=== PATIENT | male | born 1965 | race Caucasian/White ===

== ENCOUNTER 2020-05-11 14:26 | Emergency (ER) | payer MEDICARE ==
[~2020-05-11] VITALS: Ht 165.1 cm; Wt 81.8 kg
[2020-05-11 14:52] LABS: BASO % 1 % (0-3); EOS # 0.1 x10^3/uL (0.0-0.7); EOS % 2 % (0-3); HEMATOCRIT 45.7 % (39.0-53.0); HEMOGLOBIN 15.9 g/dL (13.0-17.5); LYMPH # 1.9 x10^3/uL (1.0-4.8); LYMPH % 27 % (24-48); MEAN CORPUSCULAR HEMOGLOBIN 32 pg (25-35); MEAN CORPUSCULAR HGB CONC 35 g/dL (31-37); MEAN CORPUSCULAR VOLUME 92 fL (79-100); MONO # 0.5 x10^3/uL (0.0-1.1); MONO % 7 % (0-9); NEUT # 4.4 x10^3/uL (1.8-7.7); NEUT % 64 % (31-73); PLATELET COUNT 185 x10^3/uL (140-400); RED BLOOD COUNT 4.97 x10^6/uL (4.30-5.70); WHITE BLOOD COUNT 6.9 x10^3/uL (4.0-11.0)
[2020-05-11 15:00] LABS: CALCIUM 9.3 mg/dL (8.5-10.1); GFR 78.2; POTASSIUM 4.4 mmol/L (3.5-5.1)
--- NOTE | 2020-05-11 15:00 | RAD ---
XR CHEST 2V History: Reason: chest pain since last night. / Spl. Instructions: / History: Comparison: None. Findings: No consolidation or pleural effusion. Normal heart size. No pneumothorax. Impression: 1. No acute cardiopulmonary process. Electronically signed by: Hiro Cosby DO (05/11/2020 2:58 PM) [id number]
[2020-05-11] MEDS ORDERED: KETOROLAC 30 MG/ML VIAL. IVP ONE (15:45)
[2020-05-11] MEDS ORDERED: ASPIRIN CHEWABLE 81 MG TABLET. PO ONE (15:45)
--- NOTE | 2020-05-11 17:55 | ED.ADGEN ---
Past Medical History Past Medical History: Anxiety, Depression, Seizure Past Surgical History: Appendectomy Smoking Status: Never Smoker Alcohol Use: None General Adult EDM: Chief Complaint: CHEST PAIN HPI: HPI: Patient is a 55-year-old male who presents to the emergency room complaining of left-sided chest pain that has been constant for 3 days. He states yesterday he had some radiation into his arm which is now resolved. He states that the pain feels like an aching feeling. He is never had anything like this before. He has some mild shortness of breath with it. He denies any cough, URI symptoms, fever, chills, sweats, abdominal pain, nausea, vomiting. Review of Systems: Review of Systems: Complete ROS is negative unless otherwise documented in HPI Current Medications: Current Medications Medications (Trade) Dose Ordered Sig/Aubree Start Time Stop Time Status Last Admin Dose Admin Aspirin (Aspirin Chewable) 324 mg 1X ONCE 05/11/20 15:45 05/11/20 16:16 DC 05/11/20 16:32 324 MG Ketorolac Tromethamine (Toradol 30mg Vial) 30 mg 1X ONCE 05/11/20 15:45 05/11/20 16:16 DC 05/11/20 16:32 30 MG Allergies: Allergies: Allergies Coded Allergies Type Severity Reaction Last Updated Verified No Known Drug Allergies 05/11/20 No Physical Exam: PE: General: Awake, alert, NAD. Well Nourished, well hydrated. Cooperative HEENT: Atraumatic, EOMI, PERRL, airway patent, moist oral mucosa Neck: Supple, trachea midline Respiratory: CTA bilaterally, normal effort, no wheezing/crackles CV: RRR, no murmur, cap refill <2 GI: Soft, nondistended, nontender, no masses MSK: No obvious deformities Skin: Warm, dry, intact Neuro: A&O x3, speech NL, sensory and motor grossly intact, no focal deficits Psych: Normal affect, normal mood, not suicidal or homicidal Current Patient Data: Labs: Laboratory Tests Test 05/11/20 14:40 White Blood Count 6.9 x10^3/uL (4.0-11.0) Red Blood Count 4.97 x10^6/uL (4.30-5.70) Hemoglobin 15.9 g/dL (13.0-17.5) Hematocrit 45.7 % (39.0-53.0) Mean Corpuscular Volume 92 fL (79-100) Mean Corpuscular Hemoglobin 32 pg (25-35) Mean Corpuscular Hemoglobin Concent 35 g/dL (31-37) Red Cell Distribution Width 13.0 % (11.5-14.5) Platelet Count 185 x10^3/uL (140-400) Neutrophils (%) (Auto) 64 % (31-73) Lymphocytes (%) (Auto) 27 % (24-48) Monocytes (%) (Auto) 7 % (0-9) Eosinophils (%) (Auto) 2 % (0-3) Basophils (%) (Auto) 1 % (0-3) Neutrophils # (Auto) 4.4 x10^3/uL (1.8-7.7) Lymphocytes # (Auto) 1.9 x10^3/uL (1.0-4.8) Monocytes # (Auto) 0.5 x10^3/uL (0.0-1.1) Eosinophils # (Auto) 0.1 x10^3/uL (0.0-0.7) Basophils # (Auto) 0.0 x10^3/uL (0.0-0.2) Sodium Level 139 mmol/L (136-145) Potassium Level 4.4 mmol/L (3.5-5.1) Chloride Level 101 mmol/L (98-107) Carbon Dioxide Level 32 mmol/L (21-32) Anion Gap 6 (6-14) Blood Urea Nitrogen 13 mg/dL (8-26) Creatinine 1.0 mg/dL (0.7-1.3) Estimated GFR (Cockcroft-Gault) 78.2 Glucose Level 82 mg/dL (70-99) Calcium Level 9.3 mg/dL (8.5-10.1) Troponin I Quantitative < 0.017 ng/mL (0.000-0.055) Laboratory Tests 05/11/20 14:40 Laboratory Tests 05/11/20 14:40 Vital Signs: Vital Signs Date Time Temp Pulse Resp B/P (MAP) Pulse Ox O2 Delivery O2 Flow Rate FiO2 05/11/20 18:10 79 18 127/83 (98) 97 05/11/20 17:40 Room Air 05/11/20 14:49 98.0 98.0 EKG: EKG: [] Heart Score: Risk Factors: Risk Factors: DM, Current or recent (<one month) smoker, HTN, HLP, family history of CAD, obesity. Risk Scores: Score 0 - 3: 2.5% MACE over next 6 weeks - Discharge Home Score 4 - 6: 20.3% MACE over next 6 weeks - Admit for Clinical Observation Score 7 - 10: 72.7% MACE over next 6 weeks - Early Invasive Strategies Radiology/Procedures: Radiology/Procedures: [] Course & Med Decision Making: Course & Med Decision Making Pertinent Labs and Imaging studies reviewed. (See chart for details) Patient is a 55 year-old male who presents to the Emergency Room complaining of chest pain. At this time, given patient's risk factors and story there is concern for possible cardiac pathology. EKG was ordered and shows normal sinus rhythm. At this time there is no signs of STEMI, pericarditis, or unstable arrthymia on EKG. Patient has received aspirin today. CBC, BMP, troponin, CXR were ordered to evaluate for causes of chest pain including ACS, anemia, electrolyte abnormalities that can lead to arrhythmias, PTX, pneumonia, pneumomediastinum. Patient does not have any abdominal tenderness that would suggest pancreaititis or cholecystitis and does not need an abdominal work up at this time. Patient's HEART score is 3 placing the patient at low risk. Work-up was unremarkable. Patient is feeling better after aspirin and Toradol. I did offer him admission for cardiac evaluation and patient declines. He will follow up with his primary care doctor tomorrow to have a stress test arranged outpatient. He will return to the emergency room if his chest pain comes back. Patient's test results and vitals while in the ED were fully reviewed and discussed with the patient. Patient is stable and at this time does not need admission to the hospital. We have discussed strict return precautions and the importance of following up with their Primary Care Physician. Patient stated understanding and was given an opportunity to ask any questions. Patient is in agreement with plan. Arielon Disclaimer: Arielon Disclaimer: This electronic medical record was generated, in whole or in part, using a voice recognition dictation system. Departure Departure Impression: Primary Impression: Chest pain Disposition: 01 DC HOME SELF CARE/HOMELESS Condition: STABLE Referrals: HECTOR CHOU PA-C (PCP) Patient Instructions: Chest Pain (Nonspecific) Additional Instructions: Please call your Primary Care Physician tomorrow for follow up and to set up an outpatient stress test. If your chest pain returns please come back to the Emergency Room. KAREN NEWMAN MD May 11, 2020 17:55
[2020-05-11 18:10] VITALS: BP 127/83
== END 2020-05-11 18:20 | disposition home or self-care (01) ==
LOC: ER 14:26
DX: R07.89 Other chest pain (principal); F41.9 Anxiety disorder, unspecified; F32.9 Major depressive disorder, single episode, unspecified
CPT/HCPCS: 36415; 71046; 80048; 84484; 85025; 96374; 99285; J1885